=== PATIENT | female | born 1985 | race Caucasian/White ===

== ENCOUNTER 2016-09-27 05:08 | Emergency (ER) | payer OTHER ==
[~2016-09-27] VITALS: Ht 165.1 cm; Wt 182.0 kg
[2016-09-27 05:11] VITALS: BP 184/100; PULSE 73; RESP 18; TEMP 98.6; O2SAT 98
[2016-09-27] MEDS ORDERED: MEGE40TA PO (05:50)
--- NOTE | 2016-09-27 07:18 | PD ---
HPI Chief Complaint: Gold Layer Problem/Complaint Time Seen by Provider: 06:53 Travel History International Travel<30 days: No Contact w/Intl Traveler<30days: No Traveled to known affect area: No History of Present Illness HPI 31yo F with PMH of uterine cancer presents to the ED with c/o vaginal bleeding and pelvic cramping for 5 days. Pt states her [facility] Dr. Roque from [place] referred her to [facility] oncologist Dr. Betancourt from [facility] when she was diagnosed with uterine cancer last year. Pt was placed on Mirena and it came out on its own last month. States she have not seen Dr. Betancourt since last December or January and she have left the practice. Pt states they did not give her another [facility] [employer] oncologist. Denies any fever, chest pain, sob, n/v, abdominal pain. Sates she was lying in her bathtub yesterday and was bleeding so much she passed out but did not hit her head. PFSH Past Medical History Medical other: Yes (uterine cancer) Immunizations Current: Yes Tetanus Vaccination: > 5 Years Influenza Vaccination: No ?: Not LMP: CURRENT : 0 Past Surgical History Surgical History: No Previous Surgery Social History Alcohol Use: No Tobacco Use: No Substance Use: No Allergies-Medications (Allergen,Severity, Reaction): Coded Allergies: No Known Allergies (Unverified , 09/27/16) Reported Meds & Prescriptions Reported Meds & Active Scripts Active Tylenol (Acetaminophen) 325 Mg Tab 650 Mg PO Q6H PRN Medroxyprogesterone Acetate 10 Mg Tab 10 Mg PO DAILY 14 Days Start day 21 Reported Megestrol (Megestrol Acetate) 40 Mg Tab 120 Mg PO BID Review of Systems Except as stated in HPI: all other systems reviewed are Neg Physical Exam Narrative GENERAL: 31yo F not in distress. SKIN: Focused skin assessment warm/dry. HEAD: Atraumatic. Normocephalic. EYES: Pupils equal and round. No scleral icterus. No injection or drainage. ENT: No nasal bleeding or discharge. Mucous membranes pink and moist. NECK: Trachea midline. No JVD. CARDIOVASCULAR: Regular rate and rhythm. No murmur appreciated. RESPIRATORY: No accessory muscle use. Clear to auscultation. Breath sounds equal bilaterally. GASTROINTESTINAL: Abdomen soft, non-tender, nondistended. Morbidly obese. No rebound tenderness or guarding. PELVIC: MUSCULOSKELETAL: No obvious deformities. No clubbing. No cyanosis. No edema. NEUROLOGICAL: Awake and alert. No obvious cranial nerve deficits. Motor grossly within normal limits. Normal speech. PSYCHIATRIC: Appropriate mood and affect; insight and judgment normal. Data Data Last Documented VS Vital Signs Date Time Temp Pulse Resp B/P Pulse Ox O2 Delivery O2 Flow Rate FiO2 09/27/16 05:11 98.6 73 18 184/100 98 Room Air Orders Complete Blood Count With Diff (09/27/16 07:00) Basic Metabolic Panel (Bmp) (09/27/16 07:00) Prothrombin Time / Inr (Pt) (09/27/16 07:00) Act Partial Throm Time (Ptt) (09/27/16 07:00) Type And Screen (09/27/16 07:00) Bhcg Screen Qualitative (09/27/16 07:18) Urinalysis - C+S If Indicated (09/27/16 07:18) Ed Urine Pregnancytest Poc (09/27/16 07:18) Acetaminophen (Tylenol) (09/27/16 07:30) Ketorolac Inj (Toradol Inj) (09/27/16 08:45) Labs Laboratory Tests Test 09/27/16 09/27/16 07:10 08:25 White Blood Count 11.7 TH/MM3 Red Blood Count 4.43 MIL/MM3 Hemoglobin 12.3 GM/DL Hematocrit 36.7 % Mean Corpuscular Volume 82.8 FL Mean Corpuscular Hemoglobin 27.8 PG Mean Corpuscular Hemoglobin 33.6 % Concent Red Cell Distribution Width 13.4 % Platelet Count 291 TH/MM3 Mean Platelet Volume 8.8 FL Neutrophils (%) (Auto) 63.9 % Lymphocytes (%) (Auto) 26.7 % Monocytes (%) (Auto) 6.7 % Eosinophils (%) (Auto) 1.8 % Basophils (%) (Auto) 0.9 % Neutrophils # (Auto) 7.5 TH/MM3 Lymphocytes # (Auto) 3.1 TH/MM3 Monocytes # (Auto) 0.8 TH/MM3 Eosinophils # (Auto) 0.2 TH/MM3 Basophils # (Auto) 0.1 TH/MM3 CBC Comment DIFF FINAL Differential Comment Prothrombin Time 10.0 SEC Prothromb Time International 0.9 RATIO Ratio Activated Partial 27.5 SEC Thromboplast Time Sodium Level 142 MEQ/L Potassium Level 3.8 MEQ/L Chloride Level 110 MEQ/L Carbon Dioxide Level 22.7 MEQ/L Anion Gap 9 MEQ/L Blood Urea Nitrogen 14 MG/DL Creatinine 0.76 MG/DL Estimat Glomerular Filtration 88 ML/MIN Rate Random Glucose 83 MG/DL Calcium Level 9.1 MG/DL Blood Type B POSITIVE Antibody Screen NEGATIVE Blood Bank Comment Beta HCG, Qualitative LESS THAN 1 MIU/ML MDM Medical Decision Making Medical Screen Exam Complete: Yes Emergency Medical Condition: Yes Differential Diagnosis Uterine bleeding secondary to cancer vs. metromenorrhagia Narrative Course 31yo F with uterine cancer here with vaginal bleeding and cramping. Pt has a [facility] D[facility] oncologist already and has not followed up because she said her oncologist left the practice. I discussed with our OB hospitalist who states she needs to follow up with another [employer] oncologist from that group and can give prescription for progesterone daily to help with the vaginal bleeding. Pt given acetaminophen and toradol for pain. States toradol helped with pain. Pt has no urinary complaints and gave urine sample late and it was cancelled because her pain resolved and she had no urinary complaints. Labs reviewed, H/H is stable at 12.3/36.7. negative. VS stable. Pt instructed to follow up with [employer] oncologist in her previous group. Return precautions given. Diagnosis Primary Impression: Vaginal bleeding Patient Instructions: General Instructions Departure Forms: Tests/Procedures Additional Instructions: Please follow up with your [employer] oncologist as soon as possible. Return to the ED if symptoms worsen. Med/Other Pt SpecificInfo: Prescription(s) given Scripts Naproxen 250 Mg [id number] Mg PO BID 7 Days Ref 0 Prov:Roseline Mac DO 09/27/16 Acetaminophen (Tylenol)325 Mg [id number] Mg PO Q6H PRN (PAIN SCALE 1 TO 4) #20 TAB Ref 0 Prov:Roseline Mac DO 09/27/16 Medroxyprogesterone Acetate 10 Mg Tab10 Mg PO DAILY 14 Days Ref 0 Start day 21 Prov:Roseline Mac DO 09/27/16 Disposition: 01 DISCHARGE HOME Condition: Stable Roseline Mac DO Sep 27, 2016 07:18
[2016-09-27 07:27] LABS: AUTOMATED NEUTROPHIL # 7.5 TH/MM3 (1.8-7.7); BASOPHIL # 0.1 TH/MM3 (0-0.2); BASOPHIL % 0.9 % (0.0-2.0); EOSINOPHIL # 0.2 TH/MM3 (0-0.4); EOSINOPHIL % 1.8 % (0.0-4.0); HEMATOCRIT 36.7 % (35.0-46.0); HEMO FLAGS DIFF FINAL; LYMPH % 26.7 % (9.0-44.0); LYMPHOCYTE # 3.1 TH/MM3 (1.0-4.8); MEAN CELL VOLUME 82.8 FL (80.0-100.0); MEAN CORPUSCULAR HEMOGLOBIN 27.8 PG (27.0-34.0); MEAN CORPUSCULAR HGB CONC 33.6 % (32.0-36.0); MONO % 6.7 % (0.0-8.0); NEUT % 63.9 % (16.0-70.0); PLATELET COUNT 291 TH/MM3 (150-450); RED BLOOD COUNT 4.43 MIL/MM3 (4.00-5.30); RED CELL DISTRIBUTION WIDTH 13.4 % (11.6-17.2); WHITE BLOOD COUNT 11.7 TH/MM3 (4.0-11.0)
[2016-09-27] MEDS ORDERED: ACETAMINOPHEN 500 MG CPLT PO ONE (07:30)
[2016-09-27 07:41] LABS: APTT (PATIENT) 27.5 SEC (24.3-30.1); INTERNATIONAL NORMALIZED RATIO 0.9 RATIO
[2016-09-27 07:45] LABS: BICARBONATE 22.7 MEQ/L (21.0-32.0); POTASSIUM 3.8 MEQ/L (3.5-5.1)
[2016-09-27] MEDS ORDERED: KETOROLAC TROMETHAMINE 60 MG/2 ML (IM) VIAL IM ONE (08:45)
[2016-09-27] MEDS ORDERED: MEDR10TA7 PO (09:23)
[2016-09-27] MEDS ORDERED: TYLE325T PO (09:24)
[2016-09-27] MEDS ORDERED: NAPR250T PO (09:30)
== END 2016-09-27 12:02 | disposition home or self-care (01) ==
LOC: NEPC 05:08
DX: N93.9 Abnormal uterine and vaginal bleeding, unspecified (principal); C55 Malignant neoplasm of uterus, part unspecified; R10.2 Pelvic and perineal pain; Z79.899 Other long term (current) drug therapy
CPT/HCPCS: 80048; 84703; 85025; 85610; 85730; 86850; 86900; 86901; 96372; 99284; J1885